=== PATIENT | male | born 1970 | race Caucasian/White ===

== ENCOUNTER 2019-04-03 09:26 | Emergency (ER) | payer OTHER ==
[2019-04-03 09:35] VITALS: BP 142/95; PULSE 102; TEMP 98; BMI 24.3
[2019-04-03] MEDS ORDERED: IBUPROFEN 600 MG TABLET (FP) PO ONE ×2 (09:37→09:51)
--- NOTE | 2019-04-03 10:18 | PDOC ---
History of Present Illness - General Chief Complaint: Pain, Acute Stated Complaint: RT KNEE INJURY Time Seen by Provider: 04/03/19 09:35 History Source: Patient Exam Limitations: No Limitations Past History - Travel Traveled outside of the country in the last 30 days: No Close contact w/someone who was outside of country & ill: No - Past Medical History Allergies/Adverse Reactions: Allergies Allergy/AdvReac Type Severity Reaction Status Date / Time amoxicillin [From Augmentin] Allergy Verified 04/03/19 09:32 clavulanic acid Allergy Verified 04/03/19 09:32 [From Augmentin] Home Medications: Ambulatory Orders Ibuprofen 800 mg PO TID #30 tablet 04/03/19 COPD: No 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 - Psycho Social/Smoking Cessation Hx Smoking History: Never smoked Review of Systems - Review of Systems Able to Perform ROS?: Yes Comments:: 04/03/19 10:41 CONSTITUTIONAL: Absent: fever, chills, diaphoresis, generalized weakness, malaise, loss of appetite MUSCULOSKELETAL: Present: Right knee pain absent: myalgia, arthralgia, joint swelling SKIN: Absent: rash, itching, pallor NEUROLOGIC: Absent: headache, focal weakness or paresthesias, dizziness, unsteady gait, seizure, mental status changes, bladder or bowel incontinence PSYCHIATRIC: Absent: anxiety, depression, suicidal or homicidal ideation, hallucinations. Is the patient limited German proficient: No *Physical Exam - Vital Signs Last Vital Signs Temp Pulse Resp BP Pulse Ox 98 F 102 H 18 142/95 99 04/03/19 09:33 04/03/19 09:33 04/03/19 09:33 04/03/19 09:33 04/03/19 09:33 - Physical Exam 04/03/19 10:45 GENERAL: Well developed, well nourished. Awake and alert. No acute distress. MUSCULOSKELETAL Swelling noted to the right knee. No obvious bruising. Negative anterior draw , posterior drawer testing of the right knee. Negative varus/valgus stressing tests. Pain with Marielle's with lateral movement of the right foot. Normal range of motion at all other joints. PMS of the right leg intact. Patient is able to perform a straight leg raise of the right leg. No CVA tenderness. EXTREMITIES: No cyanosis. No clubbing. No edema. No calf tenderness. SKIN: Warm and dry. Normal capillary refill. No rashes. No jaundice. NEUROLOGICAL: Alert, awake, appropriate. Cranial nerves 2-12 intact. No deficits to light touch and temperature in face, upper extremities and lower extremities. No motor deficits in the in face, upper extremities and lower extremities. Normoreflexic in the upper and lower extremities. Normal speech. Toes are down- going bilaterally. Gait is normal without ataxia. PSYCHIATRIC: Cooperative. Good eye contact. Appropriate mood and affect. ED Treatment Course - RADIOLOGY Radiology Studies Ordered: Category Date Time Status KNEE 3 POS-RIGHT [RAD] Stat Radiology 04/03/19 09:35 Completed - Medications Given in the ED: ED Medications Discontinued Medications Generic Name Dose Route Start Last Admin Trade Name Freq PRN Reason Stop Dose Admin Ibuprofen 600 mg 04/03/19 09:37 04/03/19 09:53 Motrin - PO 04/03/19 09:38 600 mg ONCE ONE Administration Medical Decision Making - Medical Decision Making 04/03/19 10:48 The patient is a 48-year-old male with no past medical history who presents to the ER today for right knee pain. He states he was walking in his house when he twisted his knee and heard a pop. He states he fell to the floor due to the pain and that his knee immediately swelled. He denies hitting his head or losing consciousness. He states that he cannot walk on the knee due to pain. Denies numbness and tingling to the affected extremity. A/P: Right knee pain On exam obvious swelling to the right knee. Pain with Marielle's testing with lateral movement of the right foot. PMS intact of the right leg. Knee x-rays negative for fractures. Suspect possible meniscus injury. Patient placed in Wil wrap and given crutches. Ortho referral given. Have patient follow-up this week for further evaluation of symptoms. Discharge home I discussed the physical exam findings, ancillary test results and final diagnoses with the patient. I answered all of the patient's questions. The patient was satisfied with the care received and felt comfortable with the discharge plan and treatment plan. The Patient agrees to follow up with the primary care physician/specialist within 24-72 hours. Return precautions were given. Discharge - Discharge Information Problems reviewed: Yes Clinical Impression/Diagnosis: Right knee pain Qualifiers: Chronicity: acute Qualified Code(s): M25.561 - Pain in right knee Condition: Stable Disposition: HOME - Admission No - Additional Discharge Information Prescriptions: Ibuprofen 800 mg PO TID #30 tablet - Follow up/Referral Referrals: Melchor Quintana MD [Staff Physician] - Tim Young DO [Staff Physician] - Shashank Hernandez MD [Staff Physician] - - Patient Discharge Instructions Patient Printed Discharge Instructions: DI for Knee Pain Additional Instructions: You injured your knee today. Your x-ray was negative for broken bones. Please keep your leg elevated while at rest above the level of your heart to reduce swelling. You may take Motrin 800 mg every 8 hours to help reduce pain and swelling. Please ice the area for 20 minute intervals at least 5 times a day to help reduce swelling. Please wear the knee immobilizer and use the crutches to help with your pain. You may take the immobilizer off to shower. You may weight-bear as tolerated. If your knee is feeling better you do not need to use the crutches. Please follow-up with orthopedics this week. A referral has been provided for you. Return to the emergency department if you have worsening pain, numbness and tingling of the foot, or had any changes in her symptoms. - Post Discharge Activity Work/Back to School Note: Back to Work
== END 2019-04-03 10:51 | disposition home or self-care (01) ==
LOC: JERFT 09:26
DX: M25.561 Pain in right knee (principal); W18.39XA Other fall on same level, initial encounter; Y93.89 Activity, other specified; Y92.018 Other place in single-family (private) house as the place of occurrence of the external cause; Y99.8 Other external cause status
CPT/HCPCS: 73562-TC-RT-FY; 99282-25